=== PATIENT | female | born 1990 | race Caucasian/White ===

== ENCOUNTER 2020-07-13 13:38 | Outpatient (CLI) | payer OTHER ==
[2020-07-13 15:28] LABS: BHCG - Serum Negative (NEGATIVE); Pregs Control Background? CLEAR/WHITE (CLR/WHITE); Pregs Control Bar Appear? YES (CONTROL BAR)
[2020-07-14 02:10] LABS: SARS-CoV-2 PCR by NAA Not Detected (NotDetected)
== END 2020-07-13 13:39 | disposition home or self-care (01) ==
LOC: CSHLAB 13:38
PROVIDERS: ATTEND Surgery
DX: Z01.812 Encounter for preprocedural laboratory examination (principal); Z20.822 Contact with and (suspected) exposure to COVID-19; N63.20 Unspecified lump in the left breast, unspecified quadrant
CPT/HCPCS: 84703; 87635; U0003; U0005

== ENCOUNTER 2020-07-16 05:56 | Day surgery (SDC) | payer OTHER ==
[2020-07-14 15:33] VITALS: BMI 22.9
[2020-07-16] MEDS ORDERED: Lidocaine 1% MPF 2 ML VIAL ONE (06:29)
[2020-07-16] MEDS ORDERED: EPINEPHrine 1 MG/ML AMP ONE (07:02)
[2020-07-16] MEDS ORDERED: Midazolam HCl 2 mg/2 ml Vial ONE ×2 (07:02→07:26)
[2020-07-16] MEDS ORDERED: Bupivacaine PF 0.5% 30 ML VIAL ONE (07:02)
[2020-07-16] MEDS ORDERED: PROPOFOL 20 ML ONE (07:26)
[2020-07-16] MEDS ORDERED: Fentanyl 100 MCG/2 ML VIAL ONE (07:26)
[2020-07-16] MEDS ORDERED: Ketorolac Tromethamine 30 MG/ML VIAL ONE (07:27)
[2020-07-16] MEDS ORDERED: Lidocaine 1% PF 5 ML VIAL ONE (07:28)
[2020-07-16] MEDS ORDERED: Dexamethasone 4 mg/ml Vial ONE (07:28)
[2020-07-16] MEDS ORDERED: Ondansetron PF 4 MG/2 ML Vial ONE (07:28)
[2020-07-16] MEDS ORDERED: Glycopyrrolate 0.2 MG/ML 5 ML SYRINGE ONE (07:28)
== END 2020-07-16 10:10 | disposition home or self-care (01) ==
LOC: CSHSDC 05:56
PROVIDERS: ATTEND Surgery
DX: N60.12 Diffuse cystic mastopathy of left breast (principal); N63.20 Unspecified lump in the left breast, unspecified quadrant; N62 Hypertrophy of breast
CPT/HCPCS: 88307; J0171; J0690; J1100; J1885; J2250; J2405; J2704; J3010; S0020